=== PATIENT | female | born 1960 | race Caucasian/White ===

== ENCOUNTER 2022-12-25 18:50 | Emergency (ER) | payer BC ==
[~2022-12-25] VITALS: Ht 157.5 cm; Wt 68.1 kg
[~2022-12-25 18:50] MED LIST: PREMARIN
[2022-12-25 18:57] VITALS: BP 156/77; PULSE 80; RESP 16; TEMP 97.3; O2SAT 98
== END 2022-12-25 20:27 | disposition home or self-care (01) ==
LOC: ER 18:51
DX: S61.411A Laceration without foreign body of right hand, initial encounter (principal); Z88.5 Allergy status to narcotic agent; W22.8XXA Striking against or struck by other objects, initial encounter; Y93.89 Activity, other specified; Y92.89 Other specified places as the place of occurrence of the external cause; Y99.8 Other external cause status
CPT/HCPCS: 12002; 99282